=== PATIENT | male | born 1995 | race Caucasian/White ===

== ENCOUNTER 2021-09-19 15:00 | Emergency (ER) | payer SELFPAY ==
[~2021-09-19] VITALS: Ht 170 cm; Wt 56.6 kg
--- NOTE | 2021-09-19 15:28 | ED Chest Pain ---
General Chief Complaint: Chest Pain Stated Complaint: CHEST PAIN,SOB Nursing Triage Note: CHEST PAIN AND SHORTNESS OF BREATH FOR 3 DAYS. CHEST PAIN HAPPENED FIRST. DENIES RESPIRITORY ILLNESS. TAKING A DEEP BREATH MAKES PAIN WORSE. Source: patient Exam Limitations: no limitations History of Present Illness Date Seen by Provider: Sep 19, 2021 Time Seen by Provider: 15:27 Initial Comments Patient is a 26-year-old male who presents the ED for chest pain. Pain started 3 days ago with a dull pain for the past 3 days. Intermittent sharp pain with movement deep inspiration. Denies of any trauma. Associated shortness of breath. Denies nausea, vomiting, diarrhea or pain with eating. No history of previous pain. Was sent to the ED from [facility] for further evaluation. Denies any visual changes, headache, dizziness, cough, runny nose, fever. Denies any recent travels or surgeries. He states he was concerned that he may be in A. fib secondary to his watch. Allergies and Home Medications Allergies Coded Allergies: No Known Drug Allergies (Unverified , 09/19/21) Patient Home Medication List Home Medication List Reviewed: Yes Review of Systems Review of Systems Constitutional: No chills, No diaphoresis, No malaise, No weakness EENTM: No Blurred Vision, No Double Vision, No Eye Pain Respiratory: Denies Cough; Shortness of Air Cardiovascular: Chest Pain Gastrointestinal: Abdominal Pain; Denies Diarrhea, Denies Nausea, Denies Vomiting Genitourinary: Denies Burning, Denies Discharge Musculoskeletal: No back pain, No joint pain Skin: No change in color, No change in hair/nails All Other Systems Reviewed Negative Unless Noted: Yes Past Ubbaevh-Hoaivc-Untugo Hx Patient Social History Tobacco Use?: No Smoking Status: Former Smoker Use of E-Cig and/or Vaping dev: No Substance use?: No Alcohol Use?: No Pt feels they are or have been: No Immunizations Up To Date Influenza Vaccine Up-to-Date: No; Not Current First/Initial COVID19 Vaccinat: 2020 Second COVID19 Vaccination Samir: 2020 COVID19 Vaccine [employer]: KAVEH Physical Exam Vital Signs Vital Signs - First Documented 09/19/21 15:09 Temp 36.7 Pulse 91 Resp 16 B/P (MAP) 117/83 (94) Pulse Ox 100 O2 Delivery Room Air Capillary Refill : Less Than 3 Seconds Height, Weight, BMI Height: '" Weight: lbs. oz. kg; 19.00 BMI Method: General Appearance: No Apparent Distress, WD/WN HEENT: PERRL/EOMI, TMs Normal, Normal ENT Inspection, Pharynx Normal Neck: Full Range of Motion, Normal Inspection, Non Tender, Supple Respiratory: Chest Non Tender, Lungs Clear, Normal Breath Sounds, No Accessory Muscle Use, No Respiratory Distress Cardiovascular: Regular Rate, Rhythm, No Edema, No Gallop, No JVD Gastrointestinal: Normal Bowel Sounds, No Organomegaly, No Pulsatile Mass, Non Tender, Soft Neurologic/Psychiatric: Alert, Oriented x3, No Motor/Sensory Deficits, Normal Mood/Affect Skin: Normal Color, Warm/Dry Progress/Results/Core Measures Results/Orders Lab Results Laboratory Tests Test 09/19/21 15:13 Range/Units White Blood Count 5.6 4.3-11.0 10^3/uL Red Blood Count 5.03 4.30-5.52 10^6/uL Hemoglobin 15.1 13.3-17.7 g/dL Hematocrit 44 40-54 % Mean Corpuscular Volume 87 80-99 fL Mean Corpuscular Hemoglobin 30 25-34 pg Mean Corpuscular Hemoglobin Concent 35 32-36 g/dL Red Cell Distribution Width 12.3 10.0-14.5 % Platelet Count 199 130-400 10^3/uL Mean Platelet Volume 9.3 9.0-12.2 fL Immature Granulocyte % (Auto) 0 % Neutrophils (%) (Auto) 56 42-75 % Lymphocytes (%) (Auto) 30 12-44 % Monocytes (%) (Auto) 9 0-12 % Eosinophils (%) (Auto) 4 0-10 % Basophils (%) (Auto) 1 0-10 % Neutrophils # (Auto) 3.1 1.8-7.8 X 10^3 Lymphocytes # (Auto) 1.7 1.0-4.0 X 10^3 Monocytes # (Auto) 0.5 0.0-1.0 X 10^3 Eosinophils # (Auto) 0.2 0.0-0.3 10^3/uL Basophils # (Auto) 0.1 0.0-0.1 10^3/uL Immature Granulocyte # (Auto) 0.0 0.0-0.1 10^3/uL Prothrombin Time 12.4 12.2-14.7 SEC INR Comment 0.9 0.8-1.4 Activated Partial Thromboplast Time 26 24-35 SEC Sodium Level 141 135-145 MMOL/L Potassium Level 4.0 3.6-5.0 MMOL/L Chloride Level 105 98-107 MMOL/L Carbon Dioxide Level 26 21-32 MMOL/L Anion Gap 10 5-14 MMOL/L Blood Urea Nitrogen 10 7-18 MG/DL Creatinine 0.96 0.60-1.30 MG/DL Estimat Glomerular Filtration Rate 110 BUN/Creatinine Ratio 10 Glucose Level 96 70-105 MG/DL Calcium Level 9.1 8.5-10.1 MG/DL Corrected Calcium 8.9 8.5-10.1 MG/DL Magnesium Level 1.9 1.6-2.4 MG/DL Total Bilirubin 0.5 0.1-1.0 MG/DL Aspartate Amino Transf (AST/SGOT) 21 5-34 U/L Alanine Aminotransferase (ALT/SGPT) 21 0-55 U/L Alkaline Phosphatase 68 40-136 U/L Myoglobin 33.7 10.0-92.0 NG/ML Troponin I < 0.028 <0.028 NG/ML B-Type Natriuretic Peptide 16.8 <100.0 PG/ML Total Protein 6.8 6.4-8.2 GM/DL Albumin 4.2 3.2-4.5 GM/DL Lipase 27 8-78 U/L My Orders Orders - INÉS CUMMINS PA Ekg Tracing (09/19/21 15:04) Cbc With Automated Diff (09/19/21 15:23) Magnesium (09/19/21 15:23) Chest 1 View, Ap/Pa Only (09/19/21 15:23) Ekg Tracing (09/19/21 15:23) Comprehensive Metabolic Panel (09/19/21 15:23) Myoglobin Serum (09/19/21 15:23) Protime With Inr (09/19/21 15:23) Partial Thromboplastin Time (09/19/21 15:23) Ed Iv/Invasive Line Start (09/19/21 15:23) Lipase (09/19/21 15:23) Bnp [place] (09/19/21 15:23) Troponin I Jama (09/19/21 15:23) Ketorolac Injection (Toradol Injection) (09/19/21 15:30) Medications Given in ED Current Medications Medications Dose Ordered Sig/Jimmie Route Start Time Stop Time Status Last Admin Dose Admin Ketorolac Tromethamine 30 mg ONCE ONCE IVP 09/19/21 15:30 09/19/21 15:31 DC 09/19/21 15:38 30 MG Vital Signs/I&O 09/19/21 09/19/21 15:09 17:05 Temp 36.7 Pulse 91 80 Resp 16 15 B/P (MAP) 117/83 (94) 118/74 Pulse Ox 100 100 O2 Delivery Room Air Blood Pressure Mean: 94 Comment Sinus rhythm with sinus arrhythmia, possible right ventricular conduction delay, 83 bpm, QRS duration 89 MS, QTc 387 MS. Departure Communication (PCP) Patient with a low heart score of 1. Substernal epigastric pain over the past 3 days. Appears to be worse with deep inspiration and movement. EKG showed sinus rhythm with sinus arrhythmia. [address] elevation or depression suggesting hemic changes. No diffuse ST elevations suggesting pericarditis. Patient Was given Toradol with some improvement. Normal lipase, liver enzymes and white blood count. Chest x-ray was negative for pneumonia, pneumothorax, pleural effusion. Cardiac work-up unremarkable. Patient without any known heart disease. Patient does not appear toxic or septic. Due to to reassuring lab work and low risk for coronary artery disease recommend outpatient follow-up with primary care physician. May need further evaluation with echocardiogram or Holter monitor. Patient is not tachycardic or hypoxic suggesting PE. No recent travels or surgeries. perc is 0. If any worsening symptoms return back to ED for further evaluation. May consider anti-inflammatories. If discomfort with eating may consider Tums to see if this is related to acid reflux. Impression Primary Impression: Chest pain Disposition: HOME, SELF-CARE Condition: Stable Departure-Patient Inst. Decision time for Depature: 16:40 Referrals: [facility]/ (PCP/Family) Primary Care Physician Patient Instructions: Chest Pain (DC) Add. Discharge Instructions: Recommend following up with your primary care physician for further evaluation. If any worsening symptoms return back to ED for further evaluation. All discharge instructions reviewed with patient and/or family. Voiced understanding. INÉS CUMMINS Sep 19, 2021 15:28
[2021-09-19 15:29] LABS: BASOPHILS # (AUTO) 0.1 10^3/uL (0.0-0.1); BASOPHILS % (AUTO) 1 % (0-10); EOSINOPHILS # (AUTO) 0.2 10^3/uL (0.0-0.3); EOSINOPHILS % (AUTO) 4 % (0-10); HEMATOCRIT 44 % (40-54); HEMOGLOBIN 15.1 g/dL (13.3-17.7); LYMPHOCYTES # (AUTO) 1.7 X 10^3 (1.0-4.0); LYMPHOCYTES % (AUTO) 30 % (12-44); MEAN CORPUSCULAR HEMOGLOBIN 30 pg (25-34); MEAN CORPUSCULAR HGB CONC 35 g/dL (32-36); MEAN CORPUSCULAR VOLUME 87 fL (80-99); MEAN PLATELET VOLUME 9.3 fL (9.0-12.2); MONOCYTES # (AUTO) 0.5 X 10^3 (0.0-1.0); MONOCYTES % (AUTO) 9 % (0-12); NEUTROPHILS # (AUTO) 3.1 X 10^3 (1.8-7.8); NEUTROPHILS % (AUTO) 56 % (42-75); PLATELET COUNT 199 10^3/uL (130-400); WHITE BLOOD COUNT 5.6 10^3/uL (4.3-11.0)
[2021-09-19] MEDS ORDERED: KETOROLAC 30 MG/ML VIAL IVP ONE (15:30)
[2021-09-19 15:35] LABS: ALBUMIN 4.2 GM/DL (3.2-4.5)
[2021-09-19 15:36] LABS: CALCIUM 9.1 MG/DL (8.5-10.1)
[2021-09-19 15:38] LABS: TOTAL PROTEIN 6.8 GM/DL (6.4-8.2)
[2021-09-19 15:39] LABS: BILIRUBIN,TOTAL 0.5 MG/DL (0.1-1.0)
[2021-09-19 15:41] LABS: CREATININE SERUM 0.96 MG/DL (0.60-1.30)
[2021-09-19 15:44] LABS: MAGNESIUM 1.9 MG/DL (1.6-2.4)
[2021-09-19 15:47] LABS: INR 0.9 (0.8-1.4); PROTHROMBIN TIME PATIENT 12.4 SEC (12.2-14.7)
--- NOTE | 2021-09-19 16:55 | Diagnostic Imaging Report ---
INDICATION: Chest pain. EXAMINATION: Chest, 09/19/2021. FINDINGS: Single view chest. The cardiomediastinal silhouette is unremarkable. The pulmonary vasculature is within normal limits. The lungs and pleural spaces are clear. IMPRESSION: No evidence of an acute cardiopulmonary process. Dictated by: Dictated on workstation # [id number]
[2021-09-19 17:05] VITALS: BP 118/74
== END 2021-09-19 17:07 | disposition home or self-care (01) ==
LOC: EDUNIT# 15:00 → ER 15:05
DX: R07.2 Precordial pain (principal); Z87.891 Personal history of nicotine dependence
CPT/HCPCS: 36415; 71045; 80053; 83690; 83735; 83874; 83880; 84484; 85025; 85610; 85730; 93005

== ENCOUNTER 2021-11-09 20:22 | Emergency (ER) | payer SELFPAY ==
[~2021-11-09] VITALS: Ht 170 cm; Wt 56.6 kg
--- NOTE | 2021-11-09 20:38 | ED Chest Pain ---
General Chief Complaint: Chest Pain Stated Complaint: CHEST PAIN Source: patient Exam Limitations: no limitations History of Present Illness Date Seen by Provider: Nov 09, 2021 Time Seen by Provider: 20:28 Initial Comments 26-year-old male presents the emergency department today for chest pain. He has had this same pain off and on for several months. He states it is similar in character today but lasted a little bit longer this afternoon than it typically does. It is described as a sharp stabbing pain in his mid to left chest without radiation. No obvious aggravating or alleviating factors. Associated some mild shortness of breath. He was seen here previous for similar pains and told to make an appoint with the [facility] clinic. He scheduled the appointment but then missed it and did not establish care. Denies any recent illness to include fevers chills cough abdominal pain, changes in bowel or bladder habits. No unilateral lower extremity pain, swelling. No history of DVT, PE. Allergies and Home Medications Allergies Coded Allergies: No Known Drug Allergies (Unverified , 09/19/21) Patient Home Medication List Home Medication List Reviewed: Yes Review of Systems Review of Systems Constitutional: no symptoms reported EENTM: No Symptoms Reported Respiratory: No Symptoms Reported Cardiovascular: Chest Pain Gastrointestinal: No Symptoms Reported Genitourinary: No Symptoms Reported Musculoskeletal: no symptoms reported Skin: no symptoms reported Psychiatric/Neurological: No Symptoms Reported Endocrine: No Symptoms Reported Hematologic/Lymphatic: No Symptoms Reported Past Vswkpvs-Ztkvkk-Buvmaa Hx Patient Social History Tobacco Use?: No Use of E-Cig and/or Vaping dev: No Substance use?: No Alcohol Use?: No Pt feels they are or have been: No Immunizations Up To Date First/Initial COVID19 Vaccinat: 2020 Second COVID19 Vaccination Samir: 2020 Family Medical History Reviewed Nursing Family Hx No Pertinent Family Hx Physical Exam Vital Signs Vital Signs - First Documented 11/09/21 20:30 Temp 37.0 Pulse 113 Resp 20 B/P (MAP) 124/81 (95) Pulse Ox 100 O2 Delivery Room Air Capillary Refill : Less Than 3 Seconds Height, Weight, BMI Height: '" Weight: lbs. oz. kg; 19.00 BMI Method: General Appearance: No Apparent Distress, WD/WN HEENT: Normal ENT Inspection, Pharynx Normal Neck: Full Range of Motion, Normal Inspection, Non Tender, Supple Respiratory: Chest Non Tender, Lungs Clear, Normal Breath Sounds, No Accessory Muscle Use, No Respiratory Distress Cardiovascular: Regular Rate, Rhythm, No Edema, No Gallop, No JVD, No Murmur, Normal Peripheral Pulses Gastrointestinal: Normal Bowel Sounds, No Organomegaly, No Pulsatile Mass, Non Tender, Soft Extremity: Normal Capillary Refill, Normal Inspection, Normal Range of Motion, Non Tender, No Calf Tenderness Neurologic/Psychiatric: Alert, Oriented x3, No Motor/Sensory Deficits Skin: Normal Color, Warm/Dry Progress/Results/Core Measures Results/Orders Lab Results Laboratory Tests Test 11/09/21 20:40 Range/Units White Blood Count 6.2 4.3-11.0 10^3/uL Red Blood Count 5.43 4.30-5.52 10^6/uL Hemoglobin 16.5 13.3-17.7 g/dL Hematocrit 47 40-54 % Mean Corpuscular Volume 86 80-99 fL Mean Corpuscular Hemoglobin 30 25-34 pg Mean Corpuscular Hemoglobin Concent 36 32-36 g/dL Red Cell Distribution Width 12.6 10.0-14.5 % Platelet Count 220 130-400 10^3/uL Mean Platelet Volume 10.1 9.0-12.2 fL Immature Granulocyte % (Auto) 0 % Neutrophils (%) (Auto) 57 42-75 % Lymphocytes (%) (Auto) 28 12-44 % Monocytes (%) (Auto) 9 0-12 % Eosinophils (%) (Auto) 5 0-10 % Basophils (%) (Auto) 1 0-10 % Neutrophils # (Auto) 3.5 1.8-7.8 10^3/uL Lymphocytes # (Auto) 1.7 1.0-4.0 10^3/uL Monocytes # (Auto) 0.6 0.0-1.0 10^3/uL Eosinophils # (Auto) 0.3 0.0-0.3 10^3/uL Basophils # (Auto) 0.0 0.0-0.1 10^3/uL Immature Granulocyte # (Auto) 0.0 0.0-0.1 10^3/uL Sodium Level 142 135-145 MMOL/L Potassium Level 4.3 3.6-5.0 MMOL/L Chloride Level 105 98-107 MMOL/L Carbon Dioxide Level 24 21-32 MMOL/L Anion Gap 13 5-14 MMOL/L Blood Urea Nitrogen 14 7-18 MG/DL Creatinine 0.87 0.60-1.30 MG/DL Estimat Glomerular Filtration Rate 121 BUN/Creatinine Ratio 16 Glucose Level 75 70-105 MG/DL Calcium Level 9.4 8.5-10.1 MG/DL Corrected Calcium 9.0 8.5-10.1 MG/DL Total Bilirubin 0.4 0.1-1.0 MG/DL Aspartate Amino Transf (AST/SGOT) 19 5-34 U/L Alanine Aminotransferase (ALT/SGPT) 20 0-55 U/L Alkaline Phosphatase 60 40-136 U/L Myoglobin 24.6 10.0-92.0 NG/ML Troponin I < 0.028 <0.028 NG/ML Total Protein 7.0 6.4-8.2 GM/DL Albumin 4.5 3.2-4.5 GM/DL My Orders Orders - SOOLOVE DO Ekg Tracing (11/09/21 20:28) Cbc With Automated Diff (11/09/21 20:35) Chest 1 View, Ap/Pa Only (11/09/21 20:35) Comprehensive Metabolic Panel (11/09/21 20:35) Myoglobin Serum (11/09/21 20:35) Ed Iv/Invasive Line Start (11/09/21 20:35) Troponin I Jama (11/09/21 20:35) Aspirin Chewable Tablet (Baby Aspirin Ch (11/09/21 20:45) Medications Given in ED Current Medications Medications Dose Ordered Sig/Jimmie Route Start Time Stop Time Status Last Admin Dose Admin Aspirin 324 mg ONCE ONCE PO 11/09/21 20:45 11/09/21 20:46 DC 11/09/21 20:43 324 MG Vital Signs/I&O 11/09/21 20:30 Temp 37.0 Pulse 113 Resp 20 B/P (MAP) 124/81 (95) Pulse Ox 100 O2 Delivery Room Air Initial ECG Impression Date: Nov 09, 2021 Initial ECG Impression Time: 20:30 Comment Sinus rhythm with a rate of 101 bpm. Normal intervals outside of a very slightly short [place] interval. Normal axis. No ST or T wave abnormalities. No ectopy Diagnostic Imaging Diagonstic Imaging: Xray Plain Films/CT/US/NM/MRI: chest Comments Negative chest Departure Communication (Admissions) Patient is hemodynamically stable. Heart score is 1, low risk for major adverse cardiac events in the next 30 days. Recommended follow-up with a primary care doctor in the next couple of weeks. And strict return precautions. Questions were sought and answered he is discharged in stable condition. Impression Primary Impression: Atypical chest pain Disposition: HOME, SELF-CARE Condition: Stable Departure-Patient Inst. Referrals: [facility] (PCP/Family) Primary Care Physician Patient Instructions: Chest Pain That Is Not Caused by the Heart (DC) Add. Discharge Instructions: Please call to schedule a follow-up appointment with the [facility] clinic as previously recommended. I recommend you do this in the next 2 weeks. return to the emergency department for any severe concerns or if your symptoms change in any way concerning to you. Follow-up with your primary physician for any nonemergent needs. All discharge instructions reviewed with patient and/or family. Voiced understanding. LOVE VANN DO Nov 09, 2021 20:38
[2021-11-09] MEDS ORDERED: ASPIRIN 81 MG CHEW (CHILDREN'S ASA) PO ONE (20:45)
[2021-11-09 20:55] LABS: BASOPHILS % (AUTO) 1 % (0-10); EOSINOPHILS # (AUTO) 0.3 10^3/uL (0.0-0.3); EOSINOPHILS % (AUTO) 5 % (0-10); HEMATOCRIT 47 % (40-54); HEMOGLOBIN 16.5 g/dL (13.3-17.7); LYMPHOCYTES # (AUTO) 1.7 10^3/uL (1.0-4.0); LYMPHOCYTES % (AUTO) 28 % (12-44); MEAN CORPUSCULAR HEMOGLOBIN 30 pg (25-34); MEAN CORPUSCULAR HGB CONC 36 g/dL (32-36); MEAN CORPUSCULAR VOLUME 86 fL (80-99); MEAN PLATELET VOLUME 10.1 fL (9.0-12.2); MONOCYTES # (AUTO) 0.6 10^3/uL (0.0-1.0); MONOCYTES % (AUTO) 9 % (0-12); NEUTROPHILS # (AUTO) 3.5 10^3/uL (1.8-7.8); NEUTROPHILS % (AUTO) 57 % (42-75); PLATELET COUNT 220 10^3/uL (130-400); WHITE BLOOD COUNT 6.2 10^3/uL (4.3-11.0)
[2021-11-09 21:11] LABS: ALBUMIN 4.5 GM/DL (3.2-4.5); POTASSIUM 4.3 MMOL/L (3.6-5.0)
--- NOTE | 2021-11-09 21:11 | Diagnostic Imaging Report ---
INDICATION: Chest pain Frontal chest obtained at 8:53 p.m. and compared with 09/19/2021. Heart and mediastinal silhouette are normal in appearance. The lungs are clear. There is no pneumothorax or pleural fluid. IMPRESSION: Negative chest. Dictated by: Dictated on workstation # [id number]
[2021-11-09 21:12] LABS: CALCIUM 9.4 MG/DL (8.5-10.1)
[2021-11-09 21:15] LABS: BILIRUBIN,TOTAL 0.4 MG/DL (0.1-1.0)
[2021-11-09 21:17] LABS: CREATININE SERUM 0.87 MG/DL (0.60-1.30)
[2021-11-09 22:02] VITALS: BP 116/82
== END 2021-11-09 22:02 | disposition home or self-care (01) ==
LOC: EDUNIT# 20:22 → ER 20:24
DX: R07.89 Other chest pain (principal)
CPT/HCPCS: 36415; 71045; 80053; 83874; 84484; 85025; 93005

== ENCOUNTER 2022-07-01 02:47 | Emergency (ER) | payer SELFPAY ==
[~2022-07-01] VITALS: Ht 170 cm; Wt 63.5 kg
[2022-07-01 02:49] VITALS: BP 122/80
[2022-07-01] MEDS ORDERED: TETANUS,DIPTH,PERTUSS P/F (BOOSTRIX) 0.5 ML VIAL IM ONE (03:15)
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
[2022-07-01] MEDS ORDERED: IBUPROFEN 800 MG (MOTRIN) TAB PO STA (04:46)
[2022-07-01] MEDS ORDERED: ACETAMINOPHEN 500 MG TAB (TYLENOL) PO STA (04:46)
[2022-07-01] MEDS ORDERED: ACHD5005 PO (05:25)
--- NOTE | 2022-07-01 06:45 | Diagnostic Imaging Report ---
INDICATION: Fracture. Comparison is made with prior exam of 07/01/2022 at 3:41 AM. This is done on the same date at 4:39 AM FINDINGS: The right hand is now partially encased within cast material. There is a displaced fracture of the right 4th metacarpal. The distal fracture fragment is displaced dorsally. IMPRESSION: Partial casting of right 4th metacarpal fracture which remains displaced. Dictated by: Dictated on workstation # [id number]
--- NOTE | 2022-07-01 06:47 | Diagnostic Imaging Report ---
INDICATION: Chest pain. Comparison is made with prior exam of 11/09/2021. FINDINGS: The heart size, mediastinal configuration, and pulmonary vascularity are within normal limits. There is no pleural effusion, pneumothorax, or pneumonia. The osseous structures are unremarkable. IMPRESSION: No acute cardiopulmonary abnormality. Dictated by: Dictated on workstation # [id number]
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
== END 2022-07-01 05:34 | disposition home or self-care (01) ==
LOC: EDUNIT# 02:47 → ER 02:49
DX: S09.90XA Unspecified injury of head, initial encounter (principal); S62.324A Displaced fracture of shaft of fourth metacarpal bone, right hand, initial encounter for closed fracture; S51.812A Laceration without foreign body of left forearm, initial encounter; Z28.310 Unvaccinated for COVID-19; V58.6XXA Passenger in pick-up truck or van injured in noncollision transport accident in traffic accident, initial encounter; Y92.410 Unspecified street and highway as the place of occurrence of the external cause
CPT/HCPCS: 29125; 70450; 71045; 72125; 73130